=== PATIENT | female | born 1980 | race Caucasian/White ===

== ENCOUNTER 2025-08-07 16:09 | Emergency (ER) | payer MEDICAID ==
[~2025-08-07] VITALS: Ht 157.5 cm; Wt 75.0 kg
[2025-08-07 16:30] VITALS: TEMP 36.8; O2SAT 99
[2025-08-07] MEDS ORDERED: CYCL10TA21 MT (18:15)
[2025-08-07 18:30] VITALS: BP 119/74; PULSE 68; RESP 14; O2SAT 100
== END 2025-08-07 18:38 | disposition home or self-care (01) ==
LOC: ER 16:25
DX: M76.31 Iliotibial band syndrome, right leg (principal); W19.XXXA Unspecified fall, initial encounter; Y93.89 Activity, other specified; Y92.89 Other specified places as the place of occurrence of the external cause; Y99.8 Other external cause status
CPT/HCPCS: 72170; 73552; 81025; 99284